=== PATIENT | female | born 1995 ===

== ENCOUNTER 2017-03-07 13:20 | Observation (INO) | payer BC ==
[2017-03-07 13:34] VITALS: BP 128/83; PULSE 103; RESP 18; TEMP 98; O2SAT 99
--- NOTE | 2017-03-07 14:09 | ED PDOC ---
HPI: Headache Time Seen by Provider: 03/07/17 13:40 Chief Complaint (Nursing): Chest Pain Chief Complaint (Provider): Headache x 3 days, chest pain today History Per: Patient History/Exam Limitations: no limitations Onset/Duration Of Symptoms: Days Current Symptoms Are (Timing): Still Present Front/Back Head: 1 - Pain Quality: Sharp, Squeezing Additional Complaint(s): Pt reports a headache, frontal region for 3 days. Pt states it wakes her up in the morning and has been getting worse. No fever/chills. Pt also reports pain in the central chest this morning which she states radiated to the left shoulder and now to the entire chest. Pt states that she also feels slightly SOB. Past Medical History Reviewed: Historical Data, Nursing Documentation, Vital Signs Vital Signs: Last Vital Signs Temp 98.0 F 03/07/17 13:31 Pulse 103 H 03/07/17 13:31 Resp 18 03/07/17 13:31 BP 128/83 03/07/17 13:31 Pulse Ox 99 03/07/17 13:31 - Medical History PMH: No Chronic Diseases - Surgical History Surgical History: No Surg Hx - Family History Family History: States: Unknown Family Hx - Living Arrangements Living Arrangements: With Family - Social History Current smoker - smoking cessation education provided: No Alcohol: None Drugs: Denies - Home Medications Home Medications: Ambulatory Orders Medication Instructions Recorded Albuterol HFA [Ventolin HFA 90 2 puff IH [id number] PRN #0 puff 09/06/16 mcg/actuation (8 g)] Azithromycin [Zithromax] 250 mg PO DAILY #6 tab 09/06/16 Benzonatate [Tessalon Perle] 100 mg PO Q8 PRN #30 capsule 09/06/16 - Allergies Allergies/Adverse Reactions: Allergies Allergy/AdvReac Type Severity Reaction Status Date / Time No Known Allergies Allergy Verified 09/28/16 16:02 Review of Systems ROS Statement: Except As Marked, All Systems Reviewed And Found Negative Cardiovascular: Positive for: Chest Pain Respiratory: Positive for: Shortness of Breath Neurological: Positive for: Headache Physical Exam - Reviewed Nursing Documentation Reviewed: Yes Vital Signs Reviewed: Yes - Physical Exam Appears: Positive for: Well, Non-toxic, No Acute Distress Head Exam: Positive for: ATRAUMATIC, NORMAL INSPECTION, NORMOCEPHALIC Skin: Positive for: Normal Color, Warm, DRY Eye Exam: Positive for: EOMI, Normal appearance, PERRL ENT: Positive for: Normal ENT Inspection Neck: Positive for: Normal, Painless ROM Cardiovascular/Chest: Positive for: Regular Rate, Rhythm Respiratory: Positive for: CNT, Normal Breath Sounds Gastrointestinal/Abdominal: Positive for: Normal Exam, Bowel Sounds, Soft Back: Positive for: Normal Inspection Extremity: Positive for: Normal ROM Neurologic/Psych: Positive for: Alert, Oriented - Laboratory Results Result Diagrams: 03/07/17 14:40 03/07/17 14:40 - ECG O2 Sat by Pulse Oximetry: 99 Medical Decision Making Medical Decision Making: Urine initially documented as negative. U.preg at bedside. Faintly line seen. Discussed with patient. BetaHcg and US ordered. PT reports LMP 02/27/17 and it was normal. Pt also reports lower abdominal pain but states she gets it often so she didn't think anything of it. Pt denies headache at 1730. Beta HcG (-) ED OBSERVATION Discharge: Yes Date of observation admission: 03/07/17 Time of observation admission: 16:47 - Observation admission statement Patient is being placed in observation because:: Further evaluation of positive test. Disposition - Clinical Impression Clinical Impression: Headache - Disposition Disposition: Routine/Home Disposition Time: 17:30 Condition: STABLE
[2017-03-07] MEDS ORDERED: Sodium Chloride 0.9% 1,000 ML IV STA (14:40)
[2017-03-07 15:04] LABS: HEMATOCRIT 33.1 % (34.0-47.0); MEAN CORPUSCULAR HEMOGLOBIN 24.8 pg (27.0-31.0); RED CELL DISTRIBUTION WIDTH 16.7 % (11.5-14.5); WHITE BLOOD COUNT 4.7 K/uL (4.8-10.8)
[2017-03-07 15:19] LABS: ALB/GLOB RATIO 1.2 (1.0-2.1); ALKALINE PHOSPHATASE 80 U/L (38-126); ALT/SGPT 40 U/L (9-52); AST/SGOT 29 U/L (14-36); BILIRUBIN,TOTAL 0.2 mg/dl (0.2-1.3); BLOOD UREA NITROGEN 12 mg/dl (7-17); CALCIUM 8.9 mg/dL (8.4-10.2); CARBON DIOXIDE 26 mmol/L (22-30); CHLORIDE 104 mmol/L (98-107); GFR AFRICAN-AMERICAN > 60; GLUCOSE,RANDOM 81 mg/dL (65-105); POTASSIUM 4.1 MMOL/L (3.6-5.0); SODIUM 140 mmol/l (132-148); TOTAL PROTEIN 7.7 G/DL (6.3-8.2)
--- NOTE | 2017-03-07 15:45 | CT ---
PROCEDURE: CT HEAD WITHOUT CONTRAST. HISTORY: morning headaches x 3 days COMPARISON: None available. TECHNIQUE: Axial computed tomography images were obtained through the head/brain without intravenous contrast. Radiation dose: Total exam DLP = 765.30 mGy-cm. This CT exam was performed using one or more of the following dose reduction techniques: Automated exposure control, adjustment of the mA and/or kV according to patient size, and/or use of iterative reconstruction technique. FINDINGS: HEMORRHAGE: No intracranial hemorrhage. BRAIN: No mass effect or edema. No atrophy or chronic microvascular ischemic changes.Please note that MRI with diffusion imaging is more sensitive in the detection of acute ischemic event. VENTRICLES: No hydrocephalus. CALVARIUM: Unremarkable. PARANASAL SINUSES: Unremarkable as visualized. No significant inflammatory changes. MASTOID AIR CELLS: Unremarkable as visualized. No inflammatory changes. OTHER FINDINGS: Mild opacification of bilateral external auditory canals, likely cerumen. IMPRESSION: No acute intracranial pathology identified.
--- NOTE | 2017-03-07 16:04 | RAD ---
HISTORY: chest pain COMPARISON: Comparison chest 09/06/2016 TECHNIQUE: Chest PA and lateral FINDINGS: LUNGS: No active pulmonary disease. PLEURA: No significant pleural effusion identified. No pneumothorax apparent. CARDIOVASCULAR: Normal. OSSEOUS STRUCTURES: No significant abnormalities. VISUALIZED UPPER ABDOMEN: Normal. OTHER FINDINGS: None. IMPRESSION: No active disease.
[2017-03-07 17:14] LABS: PARTIAL THROMBOPLASTIN TIME 27.8 SECONDS (23.3-32.5)
--- NOTE | 2017-03-07 21:57 | CARD ---
APPROVED REPORT EKG Measurement Heart [id number] <Conclusion> Sinus tachycardia Otherwise normal ECG
== END 2017-03-07 17:31 | disposition home or self-care (01) ==
LOC: H.ER 13:20 → H.EROBSV 16:46
PROVIDERS: ADMIT Emergency Medicine; ATTEND Emergency Medicine
DX: R51 Headache (principal); R07.89 Other chest pain; Z33.1 Pregnant state, incidental
CPT/HCPCS: 70450; 71020; 80053; 81025; 84702; 85027; 85378; 85610; 85730; 93005; 96374; 96375; 99284; G0378; J1885; J2765; J7040

== ENCOUNTER 2018-04-27 13:07 | Emergency (ER) | payer BC ==
[2018-04-27 13:37] VITALS: BP 120/58; PULSE 103; RESP 20; TEMP 98.3; O2SAT 100
--- NOTE | 2018-04-27 14:57 | RAD ---
PROCEDURE: Left Knee Radiographs. HISTORY: Pain. COMPARISON: None. FINDINGS: BONES: Normal. No fracture. JOINTS: Normal. No osteoarthritis. JOINT EFFUSION: Small suprapatellar joint effusion. OTHER FINDINGS: None. IMPRESSION: Suprapatellar joint effusion.
--- NOTE | 2018-04-27 15:55 | ED PDOC ---
Lower Extremity Pain/Injury Time Seen by Provider: 04/27/18 13:38 Chief Complaint (Nursing): Lower Extremity Problem/Injury Chief Complaint (Provider): Lower Extremity Problem/Injury History Per: Patient History/Exam Limitations: no limitations Onset/Duration Of Symptoms: Days (x7) Current Symptoms Are (Timing): Still Present Additional Complaint(s): 22 y/o female presents to the ED complaining of left lower extremity problem/ injury. Patient states for the past week she's had worsening left knee pain. Patient reports pain is worse when standing for a long period of time but slightly relieves when she applies a knee wrap. Denies trauma, numbness, tingling, and calf pain. PMD: None Provided Past Medical History Reviewed: Historical Data, Nursing Documentation, Vital Signs Vital Signs: Last Vital Signs Temp 98.3 F 04/27/18 13:34 Pulse 103 H 04/27/18 13:34 Resp 20 04/27/18 13:34 BP 120/58 L 04/27/18 13:34 Pulse Ox 100 04/27/18 13:34 - Medical History PMH: No Chronic Diseases - Surgical History Surgical History: No Surg Hx - Family History Family History: States: No Known Family Hx - Home Medications Home Medications: Ambulatory Orders Medication Instructions Recorded Albuterol HFA [Ventolin HFA 90 2 puff IH [id number] PRN #0 puff 09/06/16 mcg/actuation (8 g)] Azithromycin [Zithromax] 250 mg PO DAILY #6 tab 09/06/16 Benzonatate [Tessalon Perle] 100 mg PO Q8 PRN #30 capsule 09/06/16 Naproxen [Naprosyn] 500 mg PO BID PRN #10 tab 04/27/18 - Allergies Allergies/Adverse Reactions: Allergies Allergy/AdvReac Type Severity Reaction Status Date / Time No Known Allergies Allergy Verified 04/27/18 13:34 Review of Systems ROS Statement: Except As Marked, All Systems Reviewed And Found Negative Musculoskeletal: Positive for: Leg Pain (left knee pain ) Neurological: Negative for: Numbness Physical Exam - Reviewed Nursing Documentation Reviewed: Yes Vital Signs Reviewed: Yes - Physical Exam Head Exam: Positive for: ATRAUMATIC, NORMOCEPHALIC Skin: Positive for: Normal Color, Warm, Dry Eye Exam: Positive for: Normal appearance Neck: Positive for: Normal, Painless ROM Cardiovascular/Chest: Positive for: Regular Rate, Rhythm. Negative for: Murmur Respiratory: Positive for: Normal Breath Sounds. Negative for: Respiratory Distress Extremity: Positive for: Normal ROM (Full ROM actively ), Tenderness (left knee tenderness on anterior surface), Swelling (left knee swelling on anterior surface), Other (dorsalis pedis pulses 2+ bilaterally) Neurologic/Psych: Positive for: Alert, Oriented (x3) - ECG O2 Sat by Pulse Oximetry: 100 (RA) Pulse Ox Interpretation: Normal Medical Decision Making Medical Decision Making: Time: 1407 Plan: -- Knee XR 3 Views Time: 1454 KNEE XR RESULTS FINDINGS: BONES: Normal. No fracture. JOINTS: Normal. No osteoarthritis. JOINT EFFUSION: Small suprapatellar joint effusion. OTHER FINDINGS: None. IMPRESSION: Suprapatellar joint effusion. Time: 1510 -- multi care technician wrapped knee with knee immobilizer and crutches were provided. Scribe Attestation: Documented by Jerilyn Rosenthal, acting as a scribe for Jacques Reddy PA-C. Provider Scribe Attestation: All medical record entries made by the Scribe were at my direction and personally dictated by me. I have reviewed the chart and agree that the record accurately reflects my personal performance of the history, physical exam, medical decision making, and the department course for this patient. I have also personally directed, reviewed, and agree with the discharge instructions and disposition. Disposition - Clinical Impression Clinical Impression: Knee pain - Patient ED Disposition Is Patient to be Admitted: No - Disposition Referrals: Oleksandr Benavides III, MD [Staff Provider] - Disposition: Routine/Home Disposition Time: 15:00 Condition: STABLE Prescriptions: Naproxen [Naprosyn] 500 mg PO BID PRN #10 tab PRN Reason: Pain Instructions: How to Use Crutches, Knee Pain (DC) Forms: [facility] (Welsh) Print Language: PANAMANIAN
== END 2018-04-27 15:30 | disposition home or self-care (01) ==
LOC: H.ER 13:07
DX: M25.562 Pain in left knee (principal)

== ENCOUNTER 2018-11-06 22:27 | Emergency (ER) | payer BC ==
[2018-11-06 23:30] VITALS: BP 136/64; PULSE 91; RESP 18; TEMP 98.4; O2SAT 100
[2018-11-07 01:31] LABS: BASO # 0.1 K/uL (0.0-0.2); EOS # 0.1 K/uL (0.0-0.7); EOS % 1.3 % (0.0-4.0); HEMOGLOBIN 11.2 g/dL (12.0-16.0); LYMPH # 1.9 K/uL (1.0-4.3); LYMPH % 34.8 % (20.0-40.0); MEAN CELL VOLUME 83.1 fl (81.0-99.0); MEAN CORPUSCULAR HEMOGLOBIN 26.1 pg (27.0-31.0); MEAN CORPUSCULAR HGB CONC 31.5 g/dL (33.0-37.0); MEAN PLATELET VOLUME 8.5 fl (7.2-11.7); MONO # 0.6 K/uL (0.0-0.8); MONO % 11.2 % (0.0-10.0); NEUT # 2.9 K/uL (1.8-7.0); NEUT % 51.7 % (50.0-75.0); RBC 4.27 Mil/uL (3.80-5.20); RED CELL DISTRIBUTION WIDTH 16.2 % (11.5-14.5); WHITE BLOOD COUNT 5.5 K/uL (4.8-10.8)
[2018-11-07 01:41] LABS: ALT/SGPT 38 U/L (9-52); AST/SGOT 29 U/L (14-36); BLOOD UREA NITROGEN 10 mg/dl (7-17); CALCIUM 8.5 mg/dL (8.4-10.2); GFR NON-AFRICAN AMERICAN > 60
--- NOTE | 2018-11-07 02:52 | ED PDOC ---
HPI: Chest Pain Time Seen by Provider: 11/07/18 00:09 Chief Complaint (Nursing): Rib Injury History Per: Patient Additional Complaint(s): Pt. states earlier today she developed atraumatic, non-radiating L sided chest pain. Reports pain is worse with movement and when lying flat on her back. Pt. states she used Zantac to help relieve symptoms without relief. Denies SOB, hemoptysis, fever, chills, trauma, hx of DVT or PE, cough, abd pain, N/V/D, leg pain. Past Medical History Reviewed: Historical Data, Nursing Documentation, Vital Signs Vital Signs: Last Vital Signs Temp 98.4 F 11/06/18 23:27 Pulse 91 H 11/06/18 23:27 Resp 18 11/06/18 23:27 BP 136/64 11/06/18 23:27 Pulse Ox 100 11/06/18 23:27 - Surgical History Surgical History: No Surg Hx - Family History Family History: States: No Known Family Hx, Unknown Family Hx - Immunization History Hx Tetanus Toxoid Vaccination: No Hx Influenza Vaccination: No Hx Pneumococcal Vaccination: No - Home Medications Home Medications: Ambulatory Orders Medication Instructions Recorded Dicyclomine [Bentyl] 20 mg PO QID PRN #20 tab 09/22/18 Ondansetron ODT [Zofran ODT] 1 odt PO Q6 PRN #20 odt 09/22/18 RX: Naproxen [Naprosyn] 500 mg PO BID PRN #10 tab 11/07/18 - Allergies Allergies/Adverse Reactions: Allergies Allergy/AdvReac Type Severity Reaction Status Date / Time BBQ sauce Allergy RASH Uncoded 11/06/18 23:27 ROSALIE Risk Score for UA/NSTEMI - ROSALIE Risk Score Age > 64: NO 3 or more CAD Risk Factors: NO Known CAD (Stenosis greater than 50%): NO Aspirin use in past 7 days: NO Severe Angina: NO EKG ST changes greater than 0.5mm: NO Positive Cardiac Marker: NO ROSALIE Score: 0 Risk %: 5% Wells Criteria for PE - Wells Criteria for Pulmonary Embolism Clinical Signs and Symptoms of DVT: No P.E is #1 Diagnosis, or Equally Likely: No Heart Rate >100: No Immobilization at least 3 days;Surgery previous 4 weeks: No Previous, objectively diagnosed PE or DVT: No Hemoptysis: No Malignancy w/treatment within 6 months, or palliative: No Total Score: 0 Review of Systems ROS Statement: Except As Marked, All Systems Reviewed And Found Negative Cardiovascular: Positive for: Chest Pain Physical Exam - Physical Exam Appears: Positive for: Well, Non-toxic, No Acute Distress Skin: Positive for: Normal Color, Warm. Negative for: Rash Eye Exam: Positive for: Normal appearance Cardiovascular/Chest: Positive for: Regular Rate, Rhythm. Negative for: Chest Non Tender (moderate pinpoint L sided anterior chest wall tenderness) Respiratory: Positive for: Normal Breath Sounds. Negative for: Respiratory Distress Gastrointestinal/Abdominal: Positive for: Soft. Negative for: Tenderness Neurologic/Psych: Positive for: Alert, Oriented (x3) - Laboratory Results Result Diagrams: 11/07/18 01:00 11/07/18 01:00 Lab Results: Troponin I < 0.0120 ng/mL (0.00-0.120) 11/07/18 01:00 Total Bilirubin 0.3 mg/dl (0.2-1.3) 11/07/18 01:00 AST 29 U/L (14-36) 11/07/18 01:00 ALT 38 U/L (9-52) 11/07/18 01:00 Alkaline Phosphatase 96 U/L (38-126) 11/07/18 01:00 Total Protein 7.9 G/DL (6.3-8.2) 11/07/18 01:00 Albumin 4.0 g/dL (3.5-5.0) 11/07/18 01:00 Globulin 3.9 gm/dL (2.2-3.9) 11/07/18 01:00 Albumin/Globulin Ratio 1.0 (1.0-2.1) 11/07/18 01:00 - ECG ECG: Positive for: Interpreted By Me ECG Rhythm: Positive for: Sinus Rhythm. Negative for: ST/T Changes O2 Sat by Pulse Oximetry: 100 - Radiology X-Ray: Interpreted by Me (CXR) X-Ray Interpretation: No Acute Disease - Progress ED Course And Treament: Labs, CXR, EKG, toradol 30mg IV ordered. On re-evaluation pt. sleeping comfortably. Reports good relief of pain. Disposition - Clinical Impression Clinical Impression: Chest wall pain - Patient ED Disposition Is Patient to be Admitted: No - Disposition Referrals: [facility] [Outside] Disposition: Routine/Home Disposition Time: 02:51 Condition: IMPROVED Additional Instructions: FOLLOW UP WITH PMD FOR FURTHER EVALUATION RETURN TO ED IMMEDIATELY IF SYMPTOMS WORSEN BRYON CASTAÑEDA, thank you for letting us take care of you today. Your provider was Alan Rojas MD and you were treated for LT SIDE RIB PAIN. The emergency me dical care you received today was directed at your acute symptoms. If you were prescribed any medication, please fill it and take as directed. It may take several days for your symptoms to resolve. Return to the Emergency Department if your symptoms worsen, do not improve, or if you have any other problems. Please contact your doctor or call one of the physicians/clinics you have been referred to that are listed on the Patient Visit Information form that is included in your discharge packet. Bring any paperwork you were given at discharge with you along with any medications you are taking to your follow up visit. Our treatment cannot replace ongoing medical care by a primary care provider outside of the emergency department. Thank you for allowing the [facility] team to be part of your care today. If you had an X-Ray or CT scan: A Radiologist will review the ED reading if any change in treatment is needed we will contact you. If you had a blood, urine, or wound culture: It will take several days for the results, if any change in treatment is needed we will contact you. If you had an STI test: It will take 48 hours for the results. Please call after 1 week if you have not heard back. Prescriptions: RX: Naproxen [Naprosyn] 500 mg PO BID PRN #10 tab PRN Reason: Pain Instructions: Chest Pain That Is Not Caused by the Heart (DC) Forms: [facility] (Japanese)
--- NOTE | 2018-11-07 11:06 | RAD ---
Date of service: 11/07/2018 HISTORY: L sided chest pain COMPARISON: Chest radiograph dated 03/07/2017 TECHNIQUE: Chest PA and lateral FINDINGS: LUNGS: No active pulmonary disease. PLEURA: No significant pleural effusion identified. No pneumothorax apparent. CARDIOVASCULAR: No aortic atherosclerotic calcification present. Normal cardiac size. No pulmonary vascular congestion. OSSEOUS STRUCTURES: No significant abnormalities. VISUALIZED UPPER ABDOMEN: Normal. OTHER FINDINGS: None. IMPRESSION: No active disease.
--- NOTE | 2018-11-07 12:55 | CARD ---
APPROVED REPORT Date of service: 11/07/2018 EKG Measurement Heart [id number] 160P31 [id number] <Conclusion> Normal sinus rhythm Normal ECG
== END 2018-11-07 03:10 | disposition home or self-care (01) ==
LOC: H.ER 22:27
DX: R07.89 Other chest pain (principal)

== ENCOUNTER 2018-12-08 01:25 | Emergency (ER) | payer BC ==
[2018-12-08 01:37] VITALS: BMI 33.3
[2018-12-08 01:39] VITALS: O2SAT 100
[2018-12-08] MEDS ORDERED: DEXTROSE IV SCH (02:45)
[2018-12-08] MEDS ORDERED: [UNRECOGNIZED DRUG - OTHER] IV SCH (02:45)
--- NOTE | 2018-12-08 02:45 | ED PDOC ---
HPI: Chest Pain Time Seen by Provider: 12/08/18 01:29 Chief Complaint (Nursing): Palpitations Chief Complaint (Provider): Palpitations History Per: Patient History/Exam Limitations: no limitations Onset/Duration Of Symptoms: Days (x 3) Current Symptoms Are (Timing): Still Present Quality: Other (discomfort) Additional Complaint(s): 23 year old female with no significant past medical history presents to the ED for evaluation of palpitations, onset 3 days ago. Initially palpitations were localized to the right side. However, tonight they spread to the left side and she became concerned, prompting ED visit. Palpitations are associated with chest discomfort. Patient reports experiencing similar symptoms a month ago that resolved. She was unable to follow up as she does not have a PMD. Offers no other complaints. PMD: none Past Medical History Reviewed: Historical Data Vital Signs: Last Vital Signs Temp 98.6 F 12/08/18 01:37 Pulse 89 12/08/18 02:23 Resp 18 12/08/18 01:37 BP 134/81 12/08/18 01:37 Pulse Ox 100 12/08/18 01:37 - Medical History PMH: No Chronic Diseases - Surgical History Surgical History: No Surg Hx - Family History Family History: States: Unknown Family Hx, CAD (grandfather) - Social History Current smoker - smoking cessation education provided: Yes - Immunization History Hx Tetanus Toxoid Vaccination: No Hx Influenza Vaccination: No Hx Pneumococcal Vaccination: No - Home Medications Home Medications: Ambulatory Orders Medication Instructions Recorded Dicyclomine [Bentyl] 20 mg PO QID PRN #20 tab 09/22/18 Ondansetron ODT [Zofran ODT] 1 odt PO Q6 PRN #20 odt 09/22/18 Naproxen [Naprosyn] 500 mg PO BID PRN #10 tab 11/07/18 Ibuprofen [Motrin Tab] 600 mg PO Q6 #30 tab 12/08/18 - Allergies Allergies/Adverse Reactions: Allergies Allergy/AdvReac Type Severity Reaction Status Date / Time BBQ sauce Allergy RASH Uncoded 12/08/18 01:37 Review of Systems ROS Statement: Except As Marked, All Systems Reviewed And Found Negative Constitutional: Negative for: Fever, Chills Cardiovascular: Positive for: Chest Pain (discomfort), Palpitations (right sided initially, spread to left side) Respiratory: Negative for: Cough, Shortness of Breath Gastrointestinal: Negative for: Nausea, Vomiting Musculoskeletal: Negative for: Leg Pain Skin: Negative for: Rash Physical Exam - Reviewed Nursing Documentation Reviewed: Yes Vital Signs Reviewed: Yes - Physical Exam Appears: Positive for: Non-toxic, No Acute Distress Head Exam: Positive for: ATRAUMATIC, NORMAL INSPECTION, NORMOCEPHALIC Skin: Positive for: Normal Color, Warm, Dry Eye Exam: Positive for: EOMI, Normal appearance, PERRL Neck: Positive for: Normal, Painless ROM, Supple Cardiovascular/Chest: Positive for: Regular Rate, Rhythm. Negative for: Murmur Respiratory: Positive for: Normal Breath Sounds. Negative for: Wheezing, Respiratory Distress Gastrointestinal/Abdominal: Positive for: Normal Exam, Soft. Negative for: Tenderness, Distended, Guarding Extremity: Positive for: Normal ROM (upper and lower extremities). Negative for: Deformity, Swelling Neurologic/Psych: Positive for: Alert, Oriented (x 3). Negative for: Motor/Sensory Deficits - ECG O2 Sat by Pulse Oximetry: 100 (RA) Pulse Ox Interpretation: Normal Medical Decision Making Medical Decision Makin:39 A&P: 23 year old female with palpitations Not concerned for acute cardiac etiology at this time Will put on brand advocate and observe for ectopy Toradol given for pain Orders: --EKG --global clinical leader --Toradol 30 mg IM 3:30 Patient has no pain, no symptoms at this time Script for NSAID given Referral for cardiology given Very well appearing upon discharge Scribe Attestation: Documented by Sussy Major acting as a scribe for Alan Rojas MD Provider Scribe Attestation: All medical record entries made by the Scribe were at my direction and personally dictated by me. I have reviewed the chart and agree that the record accurately reflects my personal performance of the history, physical exam, medical decision making, and the department course for this patient. I have also personally directed, reviewed, and agree with the discharge instructions and disposition. Disposition - Clinical Impression Clinical Impression: Palpitations - Disposition Referrals: Michael Elizonod MD [Staff Provider] - Disposition: Routine/Home Disposition Time: 03:30 Condition: STABLE Prescriptions: Ibuprofen [Motrin Tab] 600 mg PO Q6 #30 tab Instructions: Palpitations Forms: [facility] (Martiniquais)
[2018-12-08 03:44] VITALS: BP 107/66; PULSE 92; RESP 16; TEMP 98.8
--- NOTE | 2018-12-08 08:58 | CARD ---
APPROVED REPORT Date of service: 12/08/2018 EKG Measurement Heart [id number] [id number] <Conclusion> Normal sinus rhythm Normal ECG
== END 2018-12-08 03:30 | disposition home or self-care (01) ==
LOC: H.ER 01:25
DX: R00.2 Palpitations (principal); R07.89 Other chest pain
CPT/HCPCS: 81025; 93005; 96372; 99284; J1885

== ENCOUNTER 2018-12-27 13:52 | Emergency (ER) | payer BC ==
[2018-12-27 13:52] VITALS: BMI 33.3
--- NOTE | 2018-12-27 14:23 | ED PDOC ---
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 Patient reports chest pain associated with her cough. Patient indicated she had a fever of 101.2 last night. Patient has been taking Tylenol with some improvement. Patient also complains of a sore throat, left ear pain, and intermittent shortness of breath when speaking, onset this morning. Patient took Theraflu today with no improvement of symptoms. Patient has been able to keep up with fluid intake and claims she is urinating normally. Patient denies body aches, nausea, and vomiting. 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 Patient has not received flu vaccine. PCP: None Provided Past Medical History Reviewed: Historical Data, Nursing Documentation, Vital Signs Vital Signs: Last Vital Signs Temp 101.3 F H 12/27/18 13:56 Pulse 90 12/27/18 13:56 Resp 16 12/27/18 13:56 BP 125/76 12/27/18 13:56 Pulse Ox 100 12/27/18 13:56 - Medical History PMH: No Chronic Diseases - Surgical History Surgical History: No Surg Hx - Family History Family History: States: CAD (grandfather) - Immunization History Hx Tetanus Toxoid Vaccination: No Hx Influenza Vaccination: No Hx Pneumococcal Vaccination: No - Home Medications Home Medications: Ambulatory Orders Medication Instructions Recorded Dicyclomine [Bentyl] 20 mg PO QID PRN #20 tab 09/22/18 Ondansetron ODT [Zofran ODT] 1 odt PO Q6 PRN #20 odt 09/22/18 Naproxen [Naprosyn] 500 mg PO BID PRN #10 tab 11/07/18 Ibuprofen [Motrin Tab] 600 mg PO Q6 #30 tab 12/08/18 Ibuprofen [Motrin Tab] 600 mg PO Q6 PRN 7 Days tab 12/27/18 Oseltamivir Cap [Tamiflu] 75 mg PO BID 5 Days cap 12/27/18 - Allergies Allergies/Adverse Reactions: Allergies Allergy/AdvReac Type Severity Reaction Status Date / Time BBQ sauce Allergy RASH Uncoded 12/08/18 01:37 Review of Systems ROS Statement: Except As Marked, All Systems Reviewed And Found Negative Constitutional: Positive for: Fever. Negative for: Other (body aches) ENT: Positive for: Ear Pain (left), Throat Pain (soreness) Cardiovascular: Positive for: Chest Pain (associated with cough) Respiratory: Positive for: Cough, Shortness of Breath (intermittent when speaking), Sputum (white) Gastrointestinal: Negative for: Nausea, Vomiting Genitourinary Female: Negative for: Dysuria, Frequency, Incontinence Physical Exam - Reviewed Nursing Documentation Reviewed: Yes Vital Signs Reviewed: Yes - Physical Exam Appears: Positive for: Uncomfortable ENT: Positive for: TM Is/Are (occluded by cerumen bilaterally), Pharyngeal Erythema (mildly). Negative for: Tonsillar Exudate, Tonsillar Swelling Cardiovascular/Chest: Positive for: Regular Rate, Rhythm. Negative for: Murmur Respiratory: Positive for: Normal Breath Sounds. Negative for: Respiratory Distress Gastrointestinal/Abdominal: Positive for: Normal Exam, Soft. Negative for: Tenderness Lymphatic: Positive for: Normal Exam Neurological/Psych: Positive for: Alert, Oriented Medical Decision Making Medical Decision Making: Time: 1411 Impression: Flu Plan: - Urine - CXR - Ibrupofen 600 mg PO - Tamiflu 75 mg PO - Reevaluation Time: 1540 Temperature at 102.2. Patient states she feels ill. Tachycardic. Plan: - Tylenol 975 mg PO - Normal Saline 1 Liter IV Bolus - Reevaluation Time: 1640 Patient complaining of shortness of breath and dizziness. Lungs reevaluated; clear bilaterally. Vital signs to be repeated. Plan: - CBC - BMP - Duoneb Time: 1700 FINDINGS: LUNGS: No active pulmonary disease. PLEURA: No significant pleural effusion identified. No pneumothorax apparent. CARDIOVASCULAR: No aortic atherosclerotic calcification present. Normal cardiac size. No pulmonary vascular congestion. OSSEOUS STRUCTURES: No significant abnormalities. VISUALIZED UPPER ABDOMEN: Normal. OTHER FINDINGS: None. IMPRESSION: No active disease. Scribe Attestation: Documented by Juan Muniz, acting as a scribe for GODWIN Mcnulty Provider Scribe Attestation: All medical record entries made by the Scribe were at my direction and personally dictated by me. I have reviewed the chart and agree that the record accurately reflects my personal performance of the history, physical exam, medical decision making, and the department course for this patient. I have also personally directed, reviewed, and agree with the discharge instructions and disposition. - Laboratory Results Result Diagrams: 12/27/18 16:56 12/27/18 16:56 - ECG O2 Sat by Pulse Oximetry: 100 (RA) Pulse Ox Interpretation: Normal Disposition - Clinical Impression Clinical Impression: Influenza - Patient ED Disposition Is Patient to be Admitted: No Counseled Patient/Family Regarding: Studies Performed, Diagnosis, Need For Followup - Disposition Referrals: Christos King MD [Medical Doctor] - Disposition: Routine/Home Disposition Time: 18:20 Condition: STABLE Additional Instructions: Return to ER if you develop shortness of breath or are too weak to drink anything. Get lots of rest and drink plenty of fluid. Avoid contact with others as you are very contagious. Take Tylenol and Ibuprofen for fevers and body aches. Take Tamiflu to reduce the severity of your symptoms. Prescriptions: Ibuprofen [Motrin Tab] 600 mg PO Q6 PRN 7 Days tab PRN Reason: Fever >100.4 F Oseltamivir Cap [Tamiflu] 75 mg PO BID 5 Days cap Instructions: Flu, Adult (DC) Forms: [employer] (Swedish) Print Language: BAHRAINI
[2018-12-27 15:34] VITALS: RESP 18
[2018-12-27] MEDS ORDERED: Sodium Chloride 0.9% 1,000 ML IV SCH (15:45)
[2018-12-27] MEDS ORDERED: Sodium Chloride 0.9% 1,000 ML IV STA (15:46)
[2018-12-27] MEDS ORDERED: Albuterol-Ipratrop 3 mg / 0.5 (3 ml) UD INH STA (16:42)
--- NOTE | 2018-12-27 16:44 | RAD ---
Date of service: 12/27/2018 HISTORY: shortness of breath, cough COMPARISON: No prior. TECHNIQUE: Chest PA and lateral FINDINGS: LUNGS: No active pulmonary disease. PLEURA: No significant pleural effusion identified. No pneumothorax apparent. CARDIOVASCULAR: No aortic atherosclerotic calcification present. Normal cardiac size. No pulmonary vascular congestion. OSSEOUS STRUCTURES: No significant abnormalities. VISUALIZED UPPER ABDOMEN: Normal. OTHER FINDINGS: None. IMPRESSION: No active disease.
[2018-12-27 17:09] LABS: BASO % 0.4 % (0.0-2.0); EOS # 0.1 K/uL (0.0-0.7); EOS % 1.6 % (0.0-4.0); HEMOGLOBIN 10.5 g/dL (12.0-16.0); LYMPH # 0.7 K/uL (1.0-4.3); LYMPH % 17.4 % (20.0-40.0); MEAN CELL VOLUME 82.4 fl (81.0-99.0); MEAN CORPUSCULAR HEMOGLOBIN 25.8 pg (27.0-31.0); MEAN CORPUSCULAR HGB CONC 31.3 g/dL (33.0-37.0); MEAN PLATELET VOLUME 8.6 fl (7.2-11.7); MONO # 0.6 K/uL (0.0-0.8); MONO % 14.5 % (0.0-10.0); NEUT # 2.5 K/uL (1.8-7.0); NEUT % 66.1 % (50.0-75.0); RBC 4.06 Mil/uL (3.80-5.20); RED CELL DISTRIBUTION WIDTH 16.4 % (11.5-14.5); WHITE BLOOD COUNT 3.8 K/uL (4.8-10.8)
[2018-12-27 17:13] LABS: BLOOD UREA NITROGEN 7 mg/dl (7-17); CALCIUM 8.3 mg/dL (8.4-10.2); GFR NON-AFRICAN AMERICAN > 60
[2018-12-27 18:20] VITALS: BP 116/55; PULSE 99; TEMP 99.3
[2018-12-27 18:27] VITALS: O2SAT 100
== END 2018-12-27 18:40 | disposition home or self-care (01) ==
LOC: H.ER 13:52
DX: J11.1 Influenza due to unidentified influenza virus with other respiratory manifestations (principal)
CPT/HCPCS: 71046; 80048; 81025; 85025; 94150; 94640; 96360; 99285; J7030